=== PATIENT | female | born 1985 | race Caucasian/White ===

== ENCOUNTER 2020-03-10 19:50 | Emergency (ER) | payer SELFPAY ==
[~2020-03-10] VITALS: Ht 157.5 cm; Wt 59.1 kg
[2020-03-10] MEDS ORDERED: XANAX0.5 M1 PO (20:04)
[2020-03-10] MEDS ORDERED: ONE DAILY WOME1 EACH PO (20:04)
[2020-03-10] MEDS ORDERED: PAXIL10 M1 PO (20:04)
[2020-03-10] MEDS ORDERED: CLEOCIN HCL150 M1 PO (21:58)
[2020-03-10] MEDS ORDERED: NORCO 325 MG-51 TA1 PO (22:06)
[2020-03-10 22:15] VITALS: BP 140/94
== END 2020-03-10 22:15 | disposition home or self-care (01) ==
LOC: ED 19:50
DX: T23.212A Burn of second degree of left thumb (nail), initial encounter (principal); X03.0XXA Exposure to flames in controlled fire, not in building or structure, initial encounter; Z87.891 Personal history of nicotine dependence
CPT/HCPCS: J1885

== ENCOUNTER → 2021-01-23 | Outpatient (CLI) | payer OTHER ==
[~2021-01-23] MED LIST: CLEOCIN HCL150 M1 PO; NORCO 325 MG-51 TA1 PO; ONE DAILY WOME1 EACH PO; PAXIL10 M1 PO; XANAX0.5 M1 PO
[2021-01-23 11:56] LABS: EOS # 0.1 (0.04-0.40); EOS % 1.3 % (1.0-5.0); HEMATOCRIT 45.7 % (37.0-47.0); LYMPH# 2.3 (1.50-4.00); MEAN CELL VOLUME 100 fl (78-100); MEAN CORPUSCULAR HEMOGLOBIN 33 pg (27-31); MEAN CORPUSCULAR HGB CONC 33 g/dL (33-37); MEAN PLATELET VOLUME 8.8 fl (7.4-10.4); MONO # 0.5 (0.20-0.80); PLATELET COUNT 267 K/mm3 (130-400); RED BLOOD COUNT 4.57 M/mm3 (4.10-5.30)
[2021-01-23 12:01] LABS: POTASSIUM 4.8 mmol/L (3.5-5.1)
[2021-01-23 12:02] LABS: ALBUMIN 4.5 g/dL (3.5-5.0)
[2021-01-23 12:03] LABS: CALCIUM 9.8 mg/dL (8.3-10.5)
[2021-01-23 12:04] LABS: TOTAL PROTEIN 7.6 g/dL (6.4-8.3)
[2021-01-23 12:06] LABS: TOTAL BILIRUBIN 0.5 mg/dL (0.2-1.2)
[2021-01-23 22:49] LABS: FOLLICLE STIMULATING HORMONE 75.5 mIU/mL (()); LUTENIZING HORMONE 26.7 mIU/mL (()); PROGESTERONE 0.1 ng/mL (()); PROLACTIN AMS 4.6 ng/mL (5.2-26.5)
[2021-01-28 14:21] LABS: ESTRONE (E1) LEVEL 26 pg/mL (())
== END ==
LOC: LAB 11:28
PROVIDERS: Physician Assistant
DX: Z00.00 Encounter for general adult medical examination without abnormal findings (principal); E78.5 Hyperlipidemia, unspecified; N91.2 Amenorrhea, unspecified; R05 Cough